=== PATIENT | female | born 1980 | race Caucasian/White ===

== ENCOUNTER 2016-09-26 02:49 | Observation (INO) | payer SELFPAY ==
[~2016-09-26] VITALS: Ht 162.6 cm; Wt 68.0 kg
[~2016-09-26 02:49] MED LIST: CYANOCOBAL1000 MCG/2; CYCLOBENZAPRINE10 M3 PO; MULTI VITAMINS1 TAB PO; ORTHO TRI-CYCLE1 TA2 PO
--- NOTE | 2016-09-26 16:53 | Operative Report ---
Operative/Inv Procedure Report Surgery Date: 09/26/16 Name of Procedure: Cosmetic abdominoplasty liposuction upper thighs. Pre-Operative Diagnosis: Lipodystrophy trunk and thighs Post-Operative Diagnosis: Same Estimated Blood Loss: 50ml to 100ml (200) Surgeon/Material Handling Equipment Stevedore: NENA POTTS MD Anesthesia: general endotracheal tube Operative/Procedure Note Note: Patient was counseled extensively regards to the procedure the alternatives the risks and expected outcomes as relates to the patient's request for surgical intervention to treat cosmetic abdominal lipodystrophy and fullness of the upper medial thighs. And a SPS informed consent for the abdominoplasty and she has no questions regarding it today. We talked about liposuction of the operating thighs he can result in numbness loose skin no irregularities in the skin since the patient has less than skin contractility. She understands this would like to reduce the bulk of the area. We talked about the risks of the abdominoplasty including injury to deeper and surrounding structures infection bleeding hematoma skin loss unsightly or symptomatic scar. As well as numbness. She was marked in the standing position with a ruler. She then signed informed consent. She was taken to the operating placed supine on the table. Venodyne boots are placed and then general endotracheal anesthesia was established intravenous antibiotics were given. The abdomen and thighs were prepped and draped in usual sterile fashion. Deep tendon elevated off the abdominal wall. The umbilicus was freed. The upper incision was deepened and the flap was removed. A central tunnel was created up to the xiphoid oh under direct vision. Abdominal wall plication was carried out of the anterior rectus fascia with 2 layers of nonabsorbable sutures from xiphoid to pubis. Foot and correction the was then instilled in the medial upper thighs. Through the abdominoplasty incision a cannula was used to reduce the bulk on both sides after placing tumescent fluid in the super wet technique. Patient was put in semi-thousand 3 layer closure was carried out of the incision over 2 drains. 3 layer closure was carried out of the umbilicus.
[2016-09-26] MEDS ORDERED: VICODIN 5-3001 EACH PO (17:42)
--- NOTE | 2016-09-26 17:46 | Patient Discharge Instructions ---
Discharge Instructions General Discharge Information You were seen/treated for: ABDOMINAL LIPODYSTROPHY You had these procedures: ABDOMINOPLASTY AND LIPOSUCTION OF THE THIGHS Watch for these problems: FEVER, INCREASED PAIN, DIZZINESS, CHEST PAIN, DIFFICULTY BREATHING, EXCESSIVE BRUISING. Do not soak the wound: Yes Daily wet to dry dressings: No No bath, but you may shower: No Other wound care: LEAVE DRESSINGS AND ABDOMINAL BINDER IN PLACE AT ALL TIMES UNTIL SEEN BY MD. PLEASE EMPTY THE DRAINS 2-3 TIMES PER DAY AND RECORD OUTPUT. PLEASE BRING THE RECORD TO THE OFFICE WITH YOU. Diet Continue normal diet: Yes Activity Full Activity/No Limits: No Activity Self Limited: Yes Pounds, do NOT lift more than: 5 Other activity limits: NO STRENUOUS ACTIVITY OR HEAVY LIFTING, PUSHING OR PULLING. NO DRIVING. WEAR BINDER AT ALL TIMES. PLEASE SLEEP WITH HEAD OF BEAD UP AND KNEES FLEXED. Acute Coronary Syndrome Inclusion Criteria At DC or during hospital stay patient has or had the following: ACS DIAGNOSIS No Discharge Core Measures Meds if any: Prescribed or Continued at Discharge Meds if any: NOT Prescribed or Continued at Discharge Congestive Heart Failure Inclusion Criteria At DC or during hospital stay patient has or had the following: CHF DIAGNOSIS No Discharge Core Measures Meds if any: Prescribed or Continued at Discharge Meds if any: NOT Prescribed or Continued at Discharge Cerebrovascular accident Inclusion Criteria At DC or during hospital stay patient has or had the following: CVA/TIA Diagnosis No Discharge Core Measures Meds if any: Prescribed or Continued at Discharge Meds if any: NOT Prescribed or Continued at Discharge Venous thromboembolism Inclusion Criteria VTE Diagnosis No VTE Type NONE VTE Confirmed by (Test) NONE Discharge Core Measures - Per Current guidelines, there needs to be overlap - treatment for the first 5 days of Warfarin therapy. - If discharged on Warfarin prior to 5 days of - overlap therapy, the patient will need to be - assessed for post discharge needs including - *Post discharge parental anticoagulation - *Warfarin and/or parental anticoagulation education - *Follow up date to check INR post discharge At least 5 days overlap therapy as Inpatient No Meds if any: Prescribed or Continued at Discharge Note: Overlap Therapy is Warfarin and Anticoagulant Meds if any: NOT Prescribed or Continued at Discharge
--- NOTE | 2016-09-26 17:50 | PN- Plastic Surgery ---
Subjective Subjective: Pt is seen in pacu. She was scheduled for discharge home but continues to complain of significant nausea. No emesis as of yet, but she has been dry heaving and unable to tolerate po. She has not voided as of yet either. She admits to discomfort as expected, with some control. Objective Vital Signs and I&Os Gen: Pt is resting, but easily arousable. She appears pale. Lips are also pale. NAD. Cooperative. Cardiac: regular Pulm: cta Abd: Abdominal binder is in place. There is no significant drainage visualized through the dressing. FACUNDO's contain a small amount of bloody output. Assessment/Plan Assessment/Plan Pt is a 36 yo F who is POD #0 s/p abdominoplasty and liposuction of bilateral thighs. She is experiencing intractable postop nausea. -Will admit pt to the gen med floor for 23 hour observation. -Will give IVF. -Ok to advance diet as tolerated. -Zofran and phenergan as needed for nausea. -Vicodin as needed for pain. -Alps for DVT ppx. Pt may ambulate and is encouraged to do so. -Will check CBC in am. Core Measures/Miscellaneous Venous Thromboembolism VTE Risk Factors: Acute medical illness, Surgery VTE Contraindications: No Contraindications VTE Diagnosis: No Beta Janes Is Beta Janes a Home Med? No Antibiotics Is Patient on Antibiotics? No
--- NOTE | 2016-09-26 17:57 | Surg Short-stay <48hrs Dis Sum ---
Visit Information Visit Dates Admission Date: 09/26/16 Discharge Date: 09/27/16 Surgical Short Stay DC Summary Admission Diagnosis: ABDOMINAL AND THIGH LIPODYSTROPHY Final Diagnosis: SAME PLUS POSTOP NAUSEA AND VOMITING. Procedure(s): ABDOMINOPLASTY AND LIPOSUCTION OF BILATERAL THIGHS. Summary/Significant Findings: PT IS A 36 YO F WHO PRESENTED TO [facility] ON 09/26 FOR ELECTIVE COSMETIC SURGERY INDICATED ABOVE. SHE UNDERWENT THE PROCEDURE, WHICH SHE TOLERATED WELL, BUT EXPERIENCE SIGNIFICANT NAUSEA AND DRY HEAVING IN THE PACU. SHE WAS KEPT OVERNIGHT FOR IV HYDRATION AND SLOW DIET ADVANCEMENT. HER NAUSEA EVENTUALLY RESOLVED AND SHE WAS DISCHARGED HOME WITH THE DRAINS AND ABDOMINAL BINDER IN PLACE. Condition at Discharge: STABLE Discharge Disposition: home or self care Discharge instructions provided to patient/family: Yes Post discharge follow-up plan: PLEASE EMPTY DRAINS 2-3 TIMES PER DAY AND RECORD OUTPUT. BRING RECORD TO THE OFFICE WITH YOU. PLEASE KEEP HEAD OF BED ELEVATED AND KNEES BENT WHEN LYING DOWN. AMBULATE AT HOME TO PREVENT BLOOD CLOTS. PLEASE FOLLOW UP WITH DR. POTTS NEXT WEEK FOR DRESSING CHANGE AND DRAIN REMOVAL. PLEASE REPORT ANY OF THE FOLLOWING TO MD: FEVER >101, INCREASED DRAINAGE INTO FAUCNDO DRAINS, CHEST PAIN, DIFFICULTY BREATHING
[2016-09-26 18:30] VITALS: BP 120/80
[2016-09-27 02:02] VITALS: BP 109/63
[2016-09-27 06:19] VITALS: BP 118/78
--- NOTE | 2016-09-27 07:09 | PN- Plastic Surgery ---
Subjective Subjective: Patient reporting improvement in nausea. No emesis overnight. Was able to tolerate small amounts of po intake. Denies chest pain, shortness of breath, difficulty breathing. Pain is controlled with po pain medication. Objective Vital Signs and I&Os Vital Signs Date Time Temp Pulse Resp B/P B/P Pulse O2 O2 Flow FiO2 Mean Ox Delivery Rate 09/27 0619 98.9 82 20 118/78 96 Room Air 09/27 0202 98.6 78 18 109/63 98 Room Air 09/26 1830 97.8 102 18 120/80 97 Room Air Intake & Output 09/27 0809/27 0000 09/26 1600 09/26 0809/26 0000 09/25 1600 Intake Total 420 600 Output Total 40 640 Balance 380 -40 Intake, IV 300 600 Intake, Oral 120 Output, 40 40 Drainage Output, Urine 600 Patient 150 lb Weight Physical Exam: General: Alert and oriented x3, no acute distress Cardiac: RRR, s1s2 Pulm: CTA bilaterally Abd: Incisional tenderness, no excessive redness or warmth. Dressing dry and intact. Abdominal binder in place. Extremities; Moves all extremities, distal sensation intact. Skin warm and well perfused. Calves soft and non-tender bialterally. Assessment/Plan Assessment/Plan This is a 36 year old female who was placed in observation postoperatively for intractable nausea. She imroved with antiemetic and hydration overnight and is doing well. -D/C IV fluids -OOB encouraged -Incentive spirometry encouraged -Advance diet as tolerated -Follow up cbc this am -Sub q hep for dvt ppx while in hospital -Plan for discharge home today -Will d/w Dr. Rebollar Core Measures/Miscellaneous Venous Thromboembolism VTE Risk Factors: Acute medical illness, Surgery VTE Contraindications: No Contraindications VTE Diagnosis: No Beta Janes Is Beta Janes a Home Med? No Antibiotics Is Patient on Antibiotics? No
[2016-09-27 08:16] LABS: ABSOLUTE BASOPHIL COUNT 0 /CUMM (0.0-0.2); ABSOLUTE EOSINOPHIL COUNT 0 /CUMM (0.0-0.7); ABSOLUTE GRANULOCYTE CT 13.5 /CUMM (1.4-6.5); ABSOLUTE LYMPH COUNT 0.8 /CUMM (1.2-3.4); BASOPHIL % 0.1 % (0.0-2.0); EOSINOPHIL % 0 % (0-5); GRANULOCYTE % 88.3 % (42.2-75.2); HEMATOCRIT 34.6 % (37-47); MEAN CORPUSCULAR HGB 29.5 PG (27.0-31.0); MEAN CORPUSCULAR HGB CONC 33.9 G/DL (33.0-37.0); MEAN CORPUSCULAR VOLUME 86.8 FL (81.0-99.0); PLATELET COUNT 204 /CUMM (130-400); RBC DISTRIBUTION WIDTH 13.8 % (11.5-14.5); RED BLOOD CELL CT 3.98 /CUMM (4.20-5.40)
[2016-09-27 09:02] LABS: WHITE BLOOD CELL COUNT 15.3 /CUMM (4.8-10.8)
== END 2016-09-27 13:12 ==
LOC: STS 02:49 → PACUH 17:24 → ENRESERV 17:40 → 2NB 18:14 → ENPENDDIS 09-27 07:15 → 2NB 09-27 13:12
PROVIDERS: Physician Assistant Surgical; ADMIT Surgery Plastic and Reconstructive Surgery
DX: E88.1 Lipodystrophy, not elsewhere classified (principal); Z41.1 Encounter for cosmetic surgery; K91.89 Other postprocedural complications and disorders of digestive system; Y83.9 Surgical procedure, unspecified as the cause of abnormal reaction of the patient, or of later complication, without mention of misadventure at the time of the procedure
CPT/HCPCS: 6040; 36415; 81025; 88302; 96374; 96375; 96376; C9399; G0378; J0131; J0171; J0690; J1200; J2405; J2550; J3250; J7042